=== PATIENT | female | born 1955 | race Caucasian/White ===

== ENCOUNTER 2025-05-06 05:50 | Inpatient (IN) ==
--- NOTE | 2025-04-24 16:08 | Anesthesiology Consultation ---
Date of Service April 24, 2025 Assessment & Plan (1) Encounter for pre-operative examination: Chart Review Chart Review: Acceptable Risk for Surgery and Patient NOT seen in Pre Admission Testing -Infectious Disease screening: Per PAT nursing assessment on 04/24/25. No known infectious disease contacts in past 10 days or current infectious disease symptoms. No recent travel outside the country. Right Cysto, retro pyelo, laser/ stent exchange 03/21/25= Done under [place] with LMA #4. History Surgery Operation Date: 05/06/25 10:50 Proposed Procedures p Robotic Laparoscopic Assisted Partial Nephrectomy - Right - Addy San MD Height/Weight Height: 5 ft 7 in Weight: 95.254 kg Allergies Allergy/AdvReac Type Severity Reaction Status Date / Time nitrofurantoin Allergy Unknown MOUTH Verified 04/24/25 14:11 [From Macrodantin] NUMBNESS Medications Home Medications Medication Instructions Recorded Confirmed Last Taken cholecalciferol (vitamin D3) 25 25 mcg PO HS 10/12/22 04/24/25 03/20/25 21:30 mcg (1,000 unit) tablet (Vitamin D3) levothyroxine 50 mcg tablet 75 mcg PO QAM 04/24/24 04/24/25 03/21/25 07:30 loratadine 10 mg tablet (Claritin) 10 mg PO UD PRN Allergic Symptoms 12/25/24 04/24/25 03/20/25 21:30 citalopram 20 mg tablet (Celexa) 10 mg PO HS 03/04/25 04/24/25 03/20/25 21:30 ketorolac 10 mg tablet 10 mg PO Q6H PRN pain #20 tabs 03/06/25 04/24/25 Unknown ondansetron 4 mg disintegrating 4 mg PO Q8H PRN nausea and 03/13/25 04/24/25 03/18/25 tablet vomiting #15 tabs oxycodone 5 mg tablet 5 mg PO Q6H PRN Pain 03/21/25 04/24/25 1 Week Ago ~03/14/25 tramadol 50 mg tablet 50 mg PO Q6H PRN pain #20 tabs 03/21/25 04/24/25 Unknown acetaminophen 500 mg tablet 1,000 mg PO BID PRN Pain 04/24/25 04/24/25 Unknown (Tylenol Extra Strength) pseudoephedrine-guaifenesin ER 60 1 tab PO BID PRN Congestion 04/24/25 04/24/25 Unknown mg-600 mg tablet,extend release 12hr (Mucinex D) tamsulosin 0.4 mg capsule 0.4 mg PO HS 04/24/25 04/24/25 Unknown Past Medical History Medical History Anxiety Arthritis Degenerative disc disease Fatty liver History of COVID-19 10/2021>resolved History of depression History of diverticulitis History of kidney stones History of thrush following cystocopy in mar 2025. tx and now resolved to pt knowledge. Hx of hydronephrosis Hypothyroidism Kidney mass Obesity follows with weight mgmt Prediabetes working with [employer] Sleep apnea CPAP Past Family History Family History Other No family history of adverse response to anesthesia Past Surgical History Surgical History H/O total hysterectomy OPEN History of bunionectomy RT FOOT History of cardiac cath 2003 & 2013>NO STENTS History of cholecystectomy History of colon resection 2018; lap sigmoid resection for diverticulitis History of colonoscopy History of cystoscopy (03/21/25) cystoscopy and kidney stones removal per pt , to pt knowledge no know current kidney stones hx stent (since removed) History of esophagogastroduodenoscopy (EGD) History of incisional hernia repair (10/2022) [facility] History of liver biopsy Nausea and vomiting after administration of anesthetic agent Status post arthroscopy (06/2024) rotator cuff, left [place] teeth removed Social History Smoking Status: Never smoker Do You Dip or Chew Tobacco: No Hx Alcohol Use: Yes Alcohol type: hard liquor alcohol intake frequency: holidays/special occasions only Hx Substance Use: No substance use type: does not use Lab Results Anesthesia Preop Results Results Anesthesia Widget: WBC 5.11 K/ul (4.8-10.8) 04/16/25 Hgb 12.3 g/dL (12.0-16.0) 04/16/25 Hct 35.8 % (37.0-47.0) L 04/16/25 Plt 195 K/uL (130-400) 04/16/25 Na 140 mmol/L (136-145) 04/16/25 K 4.0 mmol/L (3.5-5.1) 04/16/25 Cl 106 mmol/L (98-107) 04/16/25 CO2 29 mmol/L (21-32) 04/16/25 BUN 16 mg/dl (6-23) 04/16/25 Creat 0.67 mg/dl (0.6-1.2) 04/16/25 Glucose Level 89 mg/dl (70-99(Fasting)) 04/16/25 Testing Laboratory Results 04/06/25= URINE CULTURE: No growth- less than 1000 colonies/mL Electrocardiogram Date: 03/17/25 NSR, rate 68 bpm Chest X-Ray Date: 03/17/25 No acute findings. Stress Test Date: 10/19/23 MPHR 103% Negative for inducible ischemia Equivocal 0.5-1 mm horizontal/downsloping ST segment depression noted in inferior leads Normal LV wall motion EF 60-64% Mild cLVH Grade I diastolic dysfunction No valvular disease Other Testing Abdomen MRI 03/13/25 1. Mild persistent right-sided hydronephrosis secondary to a 4 mm ureteral calculus. 2. There are two separate enhancing right-sided renal lesions measuring up to 3.5 cm suggestive of malignancy, likely renal cell carcinoma. 3. Cholecystectomy. 4. No lymphadenopathy. Abdomen pelvis CT 03/04/25 1. 4 mm proximal right ureteral calculus which results in mild right hydronephrosis. 2. 3.5 cm right upper pole renal lesion suspicious for a neoplasm. Possible additional subtle 1.2 cm right upper pole renal lesion. Renal protocol MRI and Urology consultation are recommended. 3. Punctate right renal calculus.
[2025-05-06] MEDS: LACTATED RINGER'S 1,000 ML IV SCH (06:10)
[2025-05-06] MEDS ORDERED: DEXAMETHASONE SOD INJ 4 MG/ML VIAL ONE (06:52)
[2025-05-06] MEDS ORDERED: LIDOCAINE 2% 2 ML VIAL/AMP(20MG/ML) INFIL ONE (06:52)
[2025-05-06] MEDS ORDERED: ONDANSETRON INJ 2 MG/ML 2 ML VIAL ONE (06:52)
[2025-05-06] MEDS ORDERED: ROCURONIUM BROMIDE 10 MG/ML 5 ML VIAL IV ONE ×3 (06:52→09:05)
[2025-05-06] MEDS ORDERED: PROPOFOL IV EMULSION 10 MG/ML 20 ML VIAL IV ONE (06:52)
[2025-05-06] MEDS ORDERED: MIDAZOLAM HCL 1 MG/ML 2ML VIAL ONE (07:12)
[2025-05-06] MEDS ORDERED: ATROPINE SULFATE 0.1 MG/ML 10ML SYR IV PRN (07:15)
[2025-05-06] MEDS ORDERED: ONDANSETRON INJ 2 MG/ML 2 ML VIAL IV PRN (07:15)
--- NOTE | 2025-05-06 07:29 | History & Physical Report ---
Date of Service May 06, 2025 Assessment & Plan (1) Kidney mass: Plan Right renal mass presenting today for right robotic partial nephrectomy risks, benefits, expectations reviewed History of Present Illness Primary Care Provider: Bharath Puga MD Presenting for definitive treatment of an incidentally discovered right renal mass previously treated kidney stones Allergies Allergy/AdvReac Type Severity Reaction Status Date / Time nitrofurantoin Allergy Unknown MOUTH Verified 05/06/25 06:01 [From Macrodantin] NUMBNESS Home Medications Medication Instructions Recorded Confirmed Type cholecalciferol (vitamin D3) 25 25 mcg PO HS 10/12/22 05/06/25 History mcg (1,000 unit) tablet (Vitamin D3) levothyroxine 50 mcg tablet 75 mcg PO QAM 04/24/24 05/06/25 History loratadine 10 mg tablet (Claritin) 10 mg PO UD PRN Allergic Symptoms 12/25/24 05/06/25 History citalopram 20 mg tablet (Celexa) 10 mg PO HS 03/04/25 05/06/25 History ketorolac 10 mg tablet 10 mg PO Q6H PRN pain #20 tabs 03/06/25 05/06/25 Rx ondansetron 4 mg disintegrating 4 mg PO Q8H PRN nausea and 03/13/25 05/06/25 Rx tablet vomiting #15 tabs oxycodone 5 mg tablet 5 mg PO Q6H PRN Pain 03/21/25 05/06/25 History tramadol 50 mg tablet 50 mg PO Q6H PRN pain #20 tabs 03/21/25 05/06/25 Rx acetaminophen 500 mg tablet 1,000 mg PO BID PRN Pain 04/24/25 05/06/25 History (Tylenol Extra Strength) pseudoephedrine-guaifenesin ER 60 1 tab PO BID PRN Congestion 04/24/25 05/06/25 History mg-600 mg tablet,extend release 12hr (Mucinex D) tamsulosin 0.4 mg capsule 0.4 mg PO HS 04/24/25 05/06/25 History cyanocobalamin (vitamin B-12) 1,000 mcg PO DAILY 05/06/25 05/06/25 History 1,000 mcg tablet (Vitamin B-12) Past Med/Surg History Problem List Ureteral calculus, right Impingement syndrome of right shoulder Mass of joint of right shoulder Right shoulder pain Partial thickness tear of left rotator cuff Encounter for pre-operative examination Medical History Anxiety Arthritis Degenerative disc disease Fatty liver History of COVID-19 10/2021>resolved History of depression History of diverticulitis History of kidney stones History of thrush following cystocopy in mar 2025. tx and now resolved to pt knowledge. 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 Sleep apnea CPAP Surgical History H/O total hysterectomy OPEN History of bunionectomy RT FOOT History of cardiac cath 2003 & 2013>NO STENTS History of cholecystectomy History of colon resection 2018; lap sigmoid resection for diverticulitis History of colonoscopy History of cystoscopy (03/21/25) cystoscopy and kidney stones removal per pt , to pt knowledge no know current kidney stones hx stent (since removed) History of esophagogastroduodenoscopy (EGD) History of incisional hernia repair (10/2022) [facility] History of liver biopsy Nausea and vomiting after administration of anesthetic agent Status post arthroscopy (06/2024) rotator cuff, left [place] teeth removed Family History Other No family history of adverse response to anesthesia Social History Smoking Status: Never smoker Second Hand Exposure: Yes (in the past); Do You Dip or Chew Tobacco: No; Hx Alcohol Use: Yes Alcohol type: hard liquor Hx Substance Use: No Preferred Language: Congolese Communication Ability: Effective Survival Specialist Required: No Beliefs That Will Affect Care: None Current Living Situation: Alone Other Information That Helps Us Care for You: No Feels Safe at Home: Yes Safety Concerns: Feels Safe At This Time Assistive Devices: Contacts, CPAP, Glasses and Other Assistive Devices Comment: dental implants Physical Exam Constitutional: well developed and well nourished Neck: neck nontender Respiratory: normal respiratory effort; no respiratory distress and does not use accessory muscles Cardiovascular: Rate/Rhythm: regular rate Vessels: radial pulses present Extremities: no edema Gastrointestinal (Abdomen): Inspection/Auscultation: abdomen normal to inspection Percussion/Palpation: abdomen soft; abdomen nontender and no guarding Musculoskeletal: Head/Neck/Chest: normocephalic and head atraumatic Extremities: extremities normal to inspection Skin: no rashes and no lesions Trauma: no evidence of skin trauma Neurologic: awake; not obtunded Speech / Cognition: normal speech Motor/Sensory: no tremor Psychiatric: Orientation: alert and oriented x 3 Lymphatic: no lymphadenopathy Results & Data Vital Signs (Past 12 Hours) Vital Signs Temp Pulse Resp BP Pulse Ox O2 Del Method 05/06/25 06:00 36.7 C 83 18 147/68 H 98 Room Air
[2025-05-06] MEDS: BUPIVACAINE 0.5 % 5 MG/1 ML MPF 30ML VIAL ONE (08:31)
[2025-05-06] MEDS ORDERED: PHENYLEPHRINE 100MCG/ML 5ML SYR ONE (08:32)
[2025-05-06] MEDS ORDERED: PHENYLEPHRINE HCL 10 MG/ML VIAL ONE (08:32)
[2025-05-06] MEDS: BUPIVACAINE LIPOSOME 1.3% 266 MG/20 ML VIAL ONE (08:32)
[2025-05-06] MEDS ORDERED: ePHEDrine sulfate 50 MG/5 ML SYR ONE (09:10)
[2025-05-06] MEDS ORDERED: SUGAMMADEX SODIUM 200 MG/2 ML VIAL IV ONE (11:10)
[2025-05-06] MEDS ORDERED: HYDROmorphone INJ 1 MG/ML SYRINGE IV PRN (12:12)
[2025-05-06 12:18] LABS: Hematocrit (blood only) 35.8 % (37.0-47.0); Hemoglobin 11.9 g/dL (12.0-16.0); Mean Corpuscular Hemoglobin 31.7 pg (25.0-34.0); Mean Corpuscular Volume 95.5 fL (80.0-100.0); Platelet Count 177 K/uL (130-400); RDW Standard Deviation 44.1 fL (36.4-46.3); Red Blood Count 3.75 M/uL (4.20-5.40); White Blood Count 9.17 K/ul (4.8-10.8)
--- NOTE | 2025-05-06 12:24 | Anesthesiology Progress Note ---
Date of Service May 06, 2025 Anesthesia Post Procedure Vital Signs Vital Signs: Temp Pulse Pulse Resp BP Pulse Ox O2 Del Method 05/06/25 12:15 73 16 137/67 97 Oxymask 05/06/25 12:05 75 20 136/72 96 Oxymask 05/06/25 11:55 71 12 136/72 99 Oxymask 05/06/25 11:45 96.8 F L 74 18 142/71 H 100 Oxymask 05/06/25 06:00 98.1 F 83 18 147/68 H 98 Room Air O2 Flow Rate 05/06/25 12:15 3 05/06/25 12:05 3 05/06/25 11:55 6 05/06/25 11:45 6 05/06/25 06:00 Pain Intensity Right Shoulder: Pain Intensity: 5 Transfer of Care Handoff Completed per policy Notes Mental Status: alert / awake / arousable and participated in evaluation Patient Amnestic to Procedure: Yes Nausea / Vomiting: adequately controlled Pain: adequately controlled and improving with treatment Airway Patency, RR, SpO2: stable & adequate BP & HR: stable & adequate Hydration State: stable & adequate Anesthetic Complications: no major complications apparent and Pt Satisfied with anesthetic care
--- NOTE | 2025-05-06 12:32 | Operative Report ---
PG Post Operative Report Pre & Post Diagnosis Operation Date: 05/06/25 07:30 Pre-Op Diagnosis: Right kidney mass x2 Post-Op Diagnosis: Right kidney mass x2 I identified the patient and participated in the time-out.: Yes Procedure Operation Date: 05/06/25 07:30 Actual Procedures p Robotic Laparoscopic Assisted Partial Nephrectomy - Right x 2, lysis of ad hesions(Right) - Addy San MD Surgeon Addy San MD Ceramic Painter [id number] Geiger, Ceramic Painter Feliz Amador, PAC Estimated Blood Loss 200 Findings Consistent with Post-Op Diagnosis Specimens 1. Right renal mass #1lateral 2. Right renal mass #2medial/anterior Description of Procedure Patient was identified in the preoperative holding area and appropriate form consents reviewed and completed. She was transported to the operating suite and appropriate preoperative antibiotics and anesthesia were administered. She was placed in a left side down right side up lateral decubitus position after a Waite catheter was placed. The bed was flexed and she was padded and braced appropriately. Of note, she has had numerous prior surgeries but with has well- healed scars in various locations across her abdomen. Initially into the abdomen with a Veress needle in the right upper quadrant and insufflated to 15 mmHg. I then marked my anticipated port sites down the lateral border of the rectus muscle with the first placed 2 fingerbreadths below the costal margin and each subsequent port 6 cm inferior. I did prepare for 12 mm midline food and beverage assistant port approximately 8 cm above the umbilicus and a 5 mm subxiphoid liver retraction port. I entered through the second highest robotic port and inspected with the Visiport. There were some adhesions around the liver where the liver was relatively plastered down to the colon and kidney. There were some other adhesions from the colon to the anterior abdominal wall and in the midline there were some adhesions around the prior incision. Fortunately, I was able to place my additional ports without great difficulty or having to perform massive lyse of adhesions for the robotic ports. I did have to lyse some adhesions to allow the 12 mm port to be placed. After docking the robot, I did complete a significant amount of lysis of adhesions to free the colon from its adhesions of the anterior wall as well as trying to mobilize the liver to lift the liver edge and expose the anterior surface and superior aspect of the kidney. This was relatively involved process but working safely and diligently we were able to expose the kidney and move the liver out of the way. The liver retractor then was sufficient to hold this out of the way as we continued our dissection. After exposing the kidney and colon, I began to medialize the colon by incising the white line of Toldt and reflecting the colon medially. This worked very well and I was able to expose the duodenum and kocherized it. The IVC was identified as was the gonadal vein which was inserting into the IVC on the anterior midline. I would turn my attention to the inferior aspect of the kidney and dissected just lateral to the gonadal vein and onto the psoas muscle. I could visualize the ureter and I dissected between the ureter and gonadal. I was then able to elevate the kidney by placing my fourth arm of the robot into the space and retracting the kidney anteriorly. I dissected up the lateral border of the IVC until we encountered the renal vein. Of note, the renal vein is branched, together just at its junction with the IVC. The renal artery was identified immediately posterior to the renal vein. There is a branch that wraps around the superior aspect of the renal vein. Both of these were skeletonized entirely. I then turned my attention to the mass. The mass is quite lateral on imaging and I could not see a deformity of the fat in this location. Anticipating difficulty mobilizing the kidney, I first incised lateral to the kidney to medialize it outside of Gerota's. I also worked on the superior dissection to allow some caudal retraction of the kidney. After mobilizing external to Gerota's, I then incised Gerota's on the anterior medial aspect of the kidney and dissected onto the renal capsule and attempted to expose the maximal amount of kidney. As I carried this dissection laterally I encountered the medial aspect of the left main renal mass. This was quite lateral, so I dissected around the inferior aspect of it and attempted to dissect around the superior aspect of it exposing healthy appearing renal parenchyma in these locations. It was quite difficult to rotate the kidney enough at that time to be able to visualize the posterior aspect of the mass. I did try to dissect under the kidney while elevating it but I could not quite reach this area. I elected to dissect around the superior aspect of the kidney within Gerota's fascia which allowed a little more caudal retraction and a bit more rotation. This facilitated better visualization of the posterior aspect of the mass behind the kidney. At that time I did perform a laparoscopic ultrasound evaluation of the full kidney confirming the mass and anticipated depth of dissection needed to resected entirely. I remarked the capsule. I also was looking for a second mass which was seen on preoperative imaging. This mass was identified medial and anterior. It is entirely endophytic. Based on the ultrasound I was able to eugenio anticipated areas to incise the capsule and ultimately resect the second tumor. At that time I preplaced 2 renorrhaphy stitches into the abdomen and placed them just below the kidney into the anterior abdominal wall. I additionally brought 3 bulldog clamps (robotic), into the abdomen1 long straight, 1 short curved, 1 short straight. We took a brief timeout in the room to confirm everyone was prepared for clamp time and then placed a short curved arterial clamp across the main artery and a short straight arterial clamp across the superior branch. A long straight bulldog clamp was placed across the main vein before it branched. The kidney blanched immediately confirming good vascular control. I then went back to my main renal mass electing to perform resection of this first and I incised the capsule where we had previously marked. I carried this dissection to what I viewed to be in appropriate depth before attempting to turn it laterally. My initial dissection was inferior and medial followed by superior and ultimately concluding my resection on the posterior aspect. Although we could see the deepest portion of the tumor, I did not feel that we really violated this or left any tumor behind. Clamping seem to be excellent and there was minimal backbleeding from the kidney. After entirely freeing this mass, I pushed it to an area out of our immediate [id number] it just below the kidney and in the right pericolic gutter. I then turned my attention back to the smaller mass which was medial and anterior. I incised the capsule circumferentially around the tumor and dissected down 1 scissor breath and depth before excising the mass entirely. I could visualize the medial aspect/deep aspect of this tumor as well and cauterized the base to ensure that all the mass had been treated. The specimen was placed in the same location as the first specimen. I then began renorrhaphy. We focused first on the larger of the defects and I began at the superior aspect of it. Visualization was quite challenging given the location but I started on the posterior aspect and utilizing a sliding clip technique we began to reapproximate. I then moved to the inferior aspect of the defect and started a second stitch which allowed better retraction and mobility of the kidney to visualize the closure. Ultimately there were 5 passes across this defect before I felt that it was concluded. I performed the same type of closure on the smaller defect with 3 passes closing the defect entirely. We then elected to unclamp the kidney. I initially removed the venous clamp followed by the branch arterial clamp and ultimately the main arterial clamp. Time was marked with 30 minutes of warm ischemia time. Fortunately, hemostasis remained excellent and there was no active bleeding visualized from either defect. The kidney pinked up appropriately immediately after unclamping the vasculature. I did place a third of a sheet of Surgicel over each defect to try to recreate the capsule. No other hemostatic agents were used. I reapproximated Gerota's fascia over the defect utilizing a V-Loc suture. All needles were removed from the abdomen. The specimens were bagged and ultimately removed through the 12 mm midline port which was expanded. The robotic ports were removed. All incisions were infiltrated with half percent Marcaine and Exparel mixed. The midline incision was closed with 0 Vicryl through the fascia followed by 4-0 Monocryl through the skin. The other incisions were closed primarily with 4-0 Monocryl. Dermabond was placed over each incision. Waite catheter was left in place. She was reversed of anesthesia and taken to the recovery room in stable condition. She tolerated the procedure very well. The specimens were passed off the table for pathology and marked appropriately. Pietro Lima served as a co-surgeon on this case and assisted with the most vital portions of the case including clamping and excision of the mass as well as renorrhaphy. Feliz Amador, THADDEUS assisted from incision to closure. I attest to the content of the Intraoperative Record and any orders documented therein. Any exceptions are noted below.
[2025-05-06 12:33] LABS: Anion Gap 5.0 (3-11); Blood Urea Nitrogen 12.0 mg/dl (6-23); Calcium 8.7 mg/dl (8.6-10.3); Carbon Dioxide 27.0 mmol/L (21-32); Chloride 108.0 mmol/L (98-107); Creatinine Clr Calc Pharmacy 64.7 ml/min; Glucose 182.0 mg/dl (70-99(Fasting)); Potassium 4.0 mmol/L (3.5-5.1); Sodium 140.0 mmol/L (136-145)
[2025-05-06 12:42] LABS: Immature Granulocytes # (auto) 0.05 K/uL (0.01-0.20); Immature Granulocytes % (auto) 0.5 %
[2025-05-06] MEDS: MANNITOL 25% 12.5 GM/50 ML VIAL IV ONE (12:43)
[2025-05-06] MEDS ORDERED: HYDROmorphone INJ 0.5 MG/0.5 ML SYR IV PRN (12:43)
[2025-05-06] MEDS: HYDROmorphone INJ 1 MG/ML SYRINGE ONE (12:59)
[2025-05-06] MEDS: SODIUM CHLORIDE 0.9% 1,000 ML IV SCH (14:11)
[2025-05-06] MEDS: HYDROmorphone INJ 0.5 MG/0.5 ML SYR IV PRN (14:21)
[2025-05-06] MEDS: CITALOPRAM 20 MG TAB PO SCH (21:03)
[2025-05-06] MEDS: DOCUSATE SODIUM 100 MG CAP PO SCH (21:03)
[2025-05-07] MEDS: LEVOTHYROXINE SODIUM 75 MCG TABLET PO SCH (05:33)
[2025-05-07 07:27] LABS: Hematocrit (blood only) 34.8 % (37.0-47.0); Hemoglobin 11.2 g/dL (12.0-16.0); Immature Granulocytes # (auto) 0.02 K/uL (0.01-0.20); Immature Granulocytes % (auto) 0.2 %; Mean Corpuscular Hemoglobin 31.5 pg (25.0-34.0); Mean Corpuscular Volume 98.0 fL (80.0-100.0); Platelet Count 205 K/uL (130-400); RDW Standard Deviation 47.7 fL (36.4-46.3); Red Blood Count 3.55 M/uL (4.20-5.40); White Blood Count 9.71 K/ul (4.8-10.8)
[2025-05-07 07:47] LABS: Anion Gap 5.0 (3-11); Blood Urea Nitrogen 16.0 mg/dl (6-23); Calcium 8.3 mg/dl (8.6-10.3); Carbon Dioxide 26.0 mmol/L (21-32); Chloride 108.0 mmol/L (98-107); Creatinine Clr Calc Pharmacy 58.7 ml/min; Glucose 107.0 mg/dl (70-99(Fasting)); Potassium 4.2 mmol/L (3.5-5.1); Sodium 139.0 mmol/L (136-145)
[2025-05-07] MEDS: CYANOCOBALAMIN (B-12) 500 MCG TABLET PO SCH (08:20)
--- NOTE | 2025-05-07 08:58 | Urology Progress Note ---
Date of Service May 07, 2025 Assessment & Plan (1) Kidney mass: Plan Right renal mass x 2suspected renal cell carcinoma Postop day #1 status post robotic partial nephrectomy x 2 Remove Waite catheter this morning Reassured her that the shoulder pain is referred pain from the insufflation Ambulate Continue to monitor labs, hopeful discharge home tomorrow Admission and Anticipated Discharge Date Admission Date: May 06, 2025 Subjective Doing well overall Has had referred pain to her shoulder but no other abdominal complaints Urine has remained clear Labs all stable this morning Physical Exam Physical Exam: Incisions appropriate, urine clear, Waite in place Results & Data Vital Signs (Past 12 Hours) Vital Signs Temp Pulse Resp BP Pulse Ox O2 Del Method 05/07/25 08:19 93 Room Air 05/07/25 07:09 36.9 C 74 16 111/69 89 L Room Air 05/07/25 04:00 37.6 C H 78 20 112/64 91 CPAP 05/06/25 21:03 CPAP PG Care Time/CCT Total # of Minutes Spent Total Time Spent with Patient: Total time spent is greater than 50% in coordination of care (as documented) at patient's floor/unit and/or counseling patient: Coding Level of Care Code None Diagnoses Kidney mass N28.89
[2025-05-07] MEDS: ACETAMINOPHEN 500 MG TAB PO PRN (14:59)
--- NOTE | 2025-05-08 09:22 | Urology Progress Note ---
Date of Service May 08, 2025 Assessment & Plan (1) Kidney mass: Plan Right renal mass x 2suspected renal cell carcinoma Postop day #2 status post robotic partial nephrectomy x 2 Voiding spontaneously after catheter removal yesterday Incisions appropriate Tolerating diet Ambulating Pain well controlled Claritin ordered prn for allergies Awaiting morning labs and likely discharge home later this morning Expected clinical course reviewed, all questions answered Admission and Anticipated Discharge Date Admission Date: May 06, 2025 Supervising Physician Co-Signing Physician Notes Agree with above, seen and evaluated independently. Her abdomen is soft and incisions are appropriate She has a clear urine She feels very well Labs are stable today. Subjective Patient seen and examined at bedside. Feeling well today. Right shoulder discomfort has improved. No incisional discomfort. She is tolerating regular diet. She has been ambulating. Voiding spontaneously since catheter removal. No fever or chills. She has some sinus drainage this morning, takes Claritin at home. Review of Systems Constitutional: as per Subjective / HPI Genitourinary: as per Subjective / HPI Physical Exam Constitutional: well developed and well nourished; no acute distress Respiratory: normal respiratory effort; no respiratory distress and no labored breathing Gastrointestinal (Abdomen): Inspection/Auscultation: abdomen normal to inspection Musculoskeletal: Head/Neck/Chest: normocephalic Skin: Incisions appropriate Neurologic: moves all extremities and awake Psychiatric: Orientation: alert and oriented x 3 Results & Data Vital Signs (Past 12 Hours) Vital Signs Temp Pulse Resp BP Pulse Ox O2 Del Method 05/08/25 08:35 37.3 C 96 H 20 111/61 92 Room Air 05/07/25 23:34 36.5 C 68 18 116/67 91 Room Air PG Care Time/CCT Total # of Minutes Spent Total Time Spent with Patient: Total time spent is greater than 50% in coordination of care (as documented) at patient's floor/unit and/or counseling patient: Coding Level of Care Code None Diagnoses Kidney mass N28.89
[2025-05-08 09:54] LABS: Hematocrit (blood only) 32.4 % (37.0-47.0); Hemoglobin 10.6 g/dL (12.0-16.0); Immature Granulocytes # (auto) 0.03 K/uL (0.01-0.20); Immature Granulocytes % (auto) 0.4 %; Mean Corpuscular Hemoglobin 32.0 pg (25.0-34.0); Mean Corpuscular Volume 97.9 fL (80.0-100.0); Platelet Count 163 K/uL (130-400); RDW Standard Deviation 47.4 fL (36.4-46.3); Red Blood Count 3.31 M/uL (4.20-5.40); White Blood Count 8.37 K/ul (4.8-10.8)
[2025-05-08 10:11] LABS: Anion Gap 4.0 (3-11); Blood Urea Nitrogen 14.0 mg/dl (6-23); Calcium 8.5 mg/dl (8.6-10.3); Carbon Dioxide 28.0 mmol/L (21-32); Chloride 110.0 mmol/L (98-107); Creatinine Clr Calc Pharmacy 64.0 ml/min; Glucose 97.0 mg/dl (70-99(Fasting)); Potassium 3.7 mmol/L (3.5-5.1); Sodium 142.0 mmol/L (136-145)
--- NOTE | 2025-05-08 10:17 | Discharge Summary ---
Date of Service May 08, 2025 Admission HPI Per Admitting Provider Presenting for definitive treatment of an incidentally discovered right renal mass previously treated kidney stones Principal Diagnosis renal mass Discharge Exam Constitutional well developed and well nourished; no acute distress Respiratory normal respiratory effort; no respiratory distress and no labored breathing Gastrointestinal (Abdomen) Inspection/Auscultation: abdomen normal to inspection Musculoskeletal Head/Neck/Chest: normocephalic Skin Incisions appropriate Neurologic moves all extremities and awake Psychiatric Orientation: alert and oriented x 3 Discharge Data Allergies Allergy/AdvReac Type Severity Reaction Status Date / Time nitrofurantoin Allergy Unknown MOUTH Verified 05/06/25 06:01 [From Macrodantin] NUMBNESS Procedures Performed Operation Date: 05/06/25 07:30 Actual Procedures p Robotic Laparoscopic Assisted Partial Nephrectomy - Right x 2, lysis of adhesions(Right) - Addy San MD Hospital Course (1) Kidney mass: Plan Right renal mass x 2suspected renal cell carcinoma Postop day #2 status post robotic partial nephrectomy x 2 Voiding spontaneously after catheter removal yesterday Incisions appropriate Tolerating diet Ambulating Pain well controlled Claritin ordered prn for allergies Awaiting morning labs and likely discharge home later this morning Expected clinical course reviewed, all questions answered Labs reviewed and stable - patient ready for discharge Total Time Total Time Spent Total Time Spent (In Minutes): 25 Discharge Plan Discharge Items Patient Disposition: Home - Self-Care Reason For Visit: Other Specified Disorders of Kidney and Ureter Discharge Diagnosis: Renal mass Activity: Per Instructions section Lifting: No more than 10 pounds Bathing Comment: Okay to shower after discharge, no tub bath or soaking Sexual Activity: Wait until after follow-up appointment Exercise/Sports: Wait until after follow-up appointment Driving/Machine Use: No driving while taking prescription pain medication Non-emergency contact: Surgeon and Urologist Call non-emergency contact if: your pain is not controlled, you have a fever, your temperature is above 101, your wound has increased redness, your wound has increased drainage and your wound pain has increased Follow-up/Referrals: Bharath Puga MD [Primary Care Provider] - Diet: Regular Addtl Attending Provider Instructions: Please take all medications as prescribed and keep all follow-ups as scheduled. Please call our office at [phone] with any questions, concerns or need to reschedule appointments for any reason. We are happy to assist you. Recovering at home: We recommend having someone with you for the first few days after surgery to help care for you. It is okay to shower tomorrow. Please avoid swimming, bathing or using hot tub until incisions are well healed. Avoid driving until you are not requiring pain medication any further. Walk at least a few times a day. Increase your distance, as you feel able. Stairs in your home are okay. Please avoid strenuous or sexual activity until your follow-up. We recommend using stool softener (i.e. Colace) to prevent constipation and straining, especially the first two weeks post operatively. Call [facility] [place] [facility] at [phone] if you experience: Chest pain or trouble breathing (call [phone] or go to the hospital). Fever of 101F or higher Symptoms of infection at incision site, including redness or swelling, warmth, or bad-smelling drainage If you have catheter, and you notice: o Bloody urine or drainage that is dark red or has large clots (Please remember a small amount of blood is normal) o No drainage from the catheter for more than 6 hours o The catheter comes out of your bladder Pain that is not controlled with medicines Pending Studies at Discharge: Yes (pathology) Stand-Alone Forms: My [facility], Smoking Cessation Medications and DC Order Prescriptions: Continued ondansetron 4 mg tablet,disintegrating 4 mg PO Q8H PRN (Reason: nausea and vomiting) Qty: 15 0RF loratadine [Claritin] 10 mg tablet 10 mg PO UD PRN (Reason: Allergic Symptoms) ketorolac 10 mg tablet 10 mg PO Q6H PRN (Reason: pain) Qty: 20 0RF Patient Comments: have this prescription, have not taken any Rx Instructions: maximum total duration of 5 days from all oral, intranasal, or parenteral formulations take with food cholecalciferol (vitamin D3) [Vitamin D3] 25 mcg (1,000 unit) Tablet 25 mcg PO HS levothyroxine 50 mcg tablet 75 mcg PO QAM citalopram [Celexa] 20 mg tablet 10 mg PO HS oxycodone 5 mg tablet 5 mg PO Q6H PRN (Reason: Pain) Patient Comments: have prescription, not used since after the cysto about a month ago tramadol 50 mg tablet 50 mg PO Q6H PRN (Reason: pain) Qty: 20 0RF Patient Comments: no use since after cysto, probably a month ago tamsulosin 0.4 mg capsule 0.4 mg PO HS pseudoephedrine-guaifenesin [Mucinex D] 60-600 mg Tablet Extended Release 12 Hr 1 tab PO BID PRN (Reason: Congestion) acetaminophen [Tylenol Extra Strength] 500 mg Tablet 1,000 mg PO BID PRN (Reason: Pain) cyanocobalamin (vitamin B-12) [Vitamin B-12] 1,000 mcg Tablet 1,000 mcg PO DAILY Discharge Orders: Discharge Order (Routine); Ordered 05/08/25 Ordered By: Flores Rendon Admission Data Admit Date/Time: 05/06/25 11:48 Attending Provider: Addy San Admit Provider: Addy San Primary Care Provider: Bharath Puga Coding Level of Care Code 65953 IN/OBS DISCH 30 MIN/LESS Diagnoses Kidney mass N28.89
[2025-05-08] MEDS: LORATADINE 10 MG TAB PO PRN (11:07)
[2025-05-08] MEDS: INFLUENZA VACC TS2025-26(65y+)/PF (IIV3) 0.5mL Syr IM ONE (13:50)
--- NOTE | 2025-05-12 06:45 | Coding Query ---
PATHOLOGY To promote full compliance with coding requirements relating to patient care, physician participation is requested in all cases of numerical control programmer uncertainty. Please assist us with the question(s) below: Please review the Pathology report and please document any relevant diagnosis(es) below: Diagnosis(es): Oncocytoma Thank you Fatou ORTEGA
--- NOTE | 2025-05-12 06:51 | Coding Query ---
CODING QUERY To promote full compliance with coding requirements relating to patient care, provider participation is requested in all cases of on air talent uncertainty. Please assist us with the question(s) below: Coding Question(s): Please Specify further below, regarding documentation of Positive for COVID: ( ) COVID - Specified Type of COVID infection. Please Specify ( ) COVID - Unspecified Type of COVID infection Physician's Response(s): Thank you Fatou Haynes Principal Diagnosis: "that condition established after study, to be chiefly responsible for occasioning the admission of the patient to the hospital for care." Co-Existing Principal Diagnosis: "when two or more diagnoses equally meet the criteria for principal diagnosis as determined by the circumstances of admission, diagnostic work up, and/or therapy provided, and the Alphabetic Index, Tabular List, or another coding guideline does not provide sequencing direction, any one of the diagnoses may be sequenced first." "When the physician has documented what appears to be a current diagnosis in the body of the record, but has not included the diagnosis in the final diagnostic statement, the physician should be asked whether the diagnosis should be added." (Source Coding [facility] 2 QTR90. p3-4) SHANNON
== END 2025-05-08 14:55 | disposition home or self-care (01) | DRG 658 ==
LOC: ASU 05:50 → 3W 11:48